=== PATIENT | male | born 1950 | race Asian ===

== ENCOUNTER 2017-03-28 11:17 | Emergency (ER) | payer BC, OTHER ==
[~2017-03-28] VITALS: Ht 180.3 cm; Wt 88.5 kg
[2017-03-28 11:17] VITALS: BP_SYST 165
[~2017-03-28 11:17] MED LIST: [UNRECOGNIZED DRUG - OTHER]; actos; cozaar; iron; janumet; lipitor; lovaza; synthroid
[2017-03-28] MEDS ORDERED: MECLIZINE HCL 25 MG TABLET (ANITVERT) PO ONE (11:45)
[2017-03-28] MEDS ORDERED: NACL 0.9% 1,000 ML IV ONE (11:45)
[2017-03-28 15:00] VITALS: BP_SYST 144
[2017-03-28] MEDS ORDERED: OMEG1CAP55 PO (15:22)
[2017-03-28] MEDS ORDERED: LOSA100T11 PO (15:22)
[2017-03-28] MEDS ORDERED: VITD2000 PO (15:22)
[2017-03-28] MEDS ORDERED: ASPI81TA2 PO (15:22)
[2017-03-28] MEDS ORDERED: GLIM2TAB2 PO (15:22)
[2017-03-28] MEDS ORDERED: LEVO75TA7 PO (15:22)
[2017-03-28] MEDS ORDERED: LIP40 PO (15:22)
[2017-03-28] MEDS ORDERED: SITA1TAB9 PO (15:22)
[2017-03-28] MEDS ORDERED: PIOG45TA PO (15:22)
== END 2017-03-28 15:00 | disposition home or self-care (01) ==
LOC: SED 11:17
DX: R42 Dizziness and giddiness (principal); R11.2 Nausea with vomiting, unspecified; I10 Essential (primary) hypertension; E11.9 Type 2 diabetes mellitus without complications; Z88.8 Allergy status to other drugs, medicaments and biological substances
CPT/HCPCS: 70450; 96360; 99284; J7030; J8597